=== PATIENT | female | born 1940 | race Caucasian/White ===

== ENCOUNTER → 2017-01-01 | Outpatient (CLI) | payer MEDICARE ==
[~2017-01-01] MED LIST: BYSTOLIC10 MG PO; ELAVIL50 MG PO; LASIX40 MG PO; LIPITOR80 MG PO; PAROXETINE HCL40 MG PO; PLAVIX75 MG PO; PRINIVIL5 MG PO; RANEXA500 MG PO; SPIRIVA18 MCG INH; STIOLTO RESPIMAT4 GM INH; ULTRAM50 MG PO; VENTOLIN HFA8 GM PO
== END | disposition short-term general hospital (02) ==
LOC: CLCARD 07:40
DX: I11.0 Hypertensive heart disease with heart failure (principal); I50.9 Heart failure, unspecified; I25.10 Atherosclerotic heart disease of native coronary artery without angina pectoris; J44.9 Chronic obstructive pulmonary disease, unspecified; E78.5 Hyperlipidemia, unspecified; I25.5 Ischemic cardiomyopathy; Z95.0 Presence of cardiac pacemaker